=== PATIENT | female | born 1935 | race Caucasian/White ===

== ENCOUNTER 2019-09-11 22:40 | Emergency (ER) | payer MEDICARE ==
[~2019-09-11] VITALS: Ht 162.6 cm; Wt 43.1 kg
[2019-09-12] MEDS ORDERED: Naprosyn500 MG PO (00:13)
[2019-09-12] MEDS ORDERED: Prednisone20 MG PO (00:13)
== END 2019-09-12 00:24 | disposition home or self-care (01) ==
LOC: ER 22:40
DX: M65.4 Radial styloid tenosynovitis [de Quervain] (principal); Z88.0 Allergy status to penicillin; M79.601 Pain in right arm
CPT/HCPCS: 93971; 96372; 99283-25; J1885

== ENCOUNTER 2021-12-10 10:10 | Emergency (ER) | payer MEDICARE ==
[~2021-12-10] VITALS: Ht 162.6 cm; Wt 39.9 kg
[~2021-12-10 10:10] MED LIST: Naprosyn500 MG PO; Prednisone20 MG PO
[2021-12-10] MEDS ORDERED: Norco 5-325 Ta1 EACH PO (11:18)
[2021-12-10] MEDS ORDERED: TOPICAINE 5113 GM TOP (11:18)
== END 2021-12-10 11:35 | disposition home or self-care (01) ==
LOC: ER 10:10
DX: B02.9 Zoster without complications (principal); Z79.52 Long term (current) use of systemic steroids; Z79.899 Other long term (current) drug therapy; Z88.0 Allergy status to penicillin
CPT/HCPCS: 99282

== ENCOUNTER 2024-02-21 14:49 | Inpatient (IN) | payer MEDICARE ==
[~2024-02-21] VITALS: Ht 154.9 cm; Wt 35.8 kg
[~2024-02-21 14:49] MED LIST changes: +Norco 5-325 Ta1 EACH PO; +TOPICAINE 5113 GM TOP
[2024-02-21] MEDS ORDERED: Pantoprazole Sodium 40 MG Injection IV ONE (17:25)
[2024-02-21] MEDS ORDERED: Pantoprazole Sodium 40 MG in NS 50 ML IV SCH (17:25)
[2024-02-21 17:36] LABS: BASOPHILS ABSOLUTE AUTO 0.05 K/mm3 (0.00-0.23); BASOPHILS PERCENT AUTO 0 % (0-2); EOSINOPHILS ABSOLUTE AUTO 0.02 K/mm3 (0.00-0.68); EOSINOPHILS PERCENT AUTO 0 % (0-6); Hematocrit 33.1 % (33.0-51.0); Hemoglobin 11.7 g/dL (11.5-16.0); IMMATURE GRAN ABSOLUTE AUTO 0.22 K/mm3 (0.00-0.10); IMMATURE GRAN PERCENT AUTO 1 % (0-1); LYMPHOCYTES ABSOLUTE AUTO 1.07 K/mm3 (0.84-5.20); LYMPHOCYTES PERCENT AUTO 5 % (21-46); MONOCYTES ABSOLUTE AUTO 0.85 K/mm3 (0.16-1.47); MONOCYTES PERCENT AUTO 4 % (4-13); Mean Corpuscular HGB 30.5 pg (26.0-34.0); Mean Corpuscular HGB Conc 35.3 g/dL (31.5-36.5); Mean Corpuscular Volume 86 fL (80-100); NEUTROPHILS ABSOLUTE AUTO 19.39 K/mm3 (1.96-9.15); NEUTROPHILS PERCENT AUTO 90 % (41-73); RDW Coefficient Variation 14.4 % (11.7-14.2); RDW Standard Deviation 44.2 fL (35.1-46.3); Red Blood Cell Count 3.84 M/mm3 (3.80-5.20)
[2024-02-21 17:47] LABS: International Normalized Ratio 1.12; Prothrombin Time Results 11.9 Sec (9.7-11.5)
[2024-02-21 17:58] LABS: Mean Platelet Volume 11.5 fL (9.1-12.4); Platelet Count 283 K/mm3 (150-400)
[2024-02-21 18:00] LABS: Albumin, Blood 2.9 g/dL (3.4-5.0); Albumin/Globulin Ratio 0.8 (0.8-1.8); Bilirubin, Total 0.5 mg/dL (0.1-1.0); Bun/Creatinine Ratio 82.7 (12.0-20.0); Calcium, Blood 8.9 mg/dL (8.5-10.1); Creatinine, Blood 0.42 mg/dL (0.40-1.00); Globulin, Blood 3.5 g/dL (2.2-4.0); Total Protein, Blood 6.4 g/dL (6.4-8.2)
[2024-02-21] MEDS ORDERED: CefTRIAXone Sodium 1,000 MG in NS 50 ML IV ONE (18:00)
[2024-02-21 18:02] LABS: Potassium, Blood 2.3 mmol/L (3.5-5.5)
[2024-02-21] MEDS ORDERED: Potassium Chl 20MEQ/Water100ML 100 ML IV SCH (18:10)
[2024-02-21] MEDS ORDERED: Potassium Chloride 20 MEQ TabCR PO ONE (18:10)
[2024-02-21] MEDS ORDERED: NS 1,000 ML IV SCH (19:00)
[2024-02-21] MEDS ORDERED: Ondansetron HCl 2 MG / ML 2ML Vial IV PRN (20:10)
[2024-02-21] MEDS ORDERED: FLU VACC TS2024-25(6MOS UP)/PF 45 MCG/0.5 ML SYRINGE IM SCH (20:10)
[2024-02-21] MEDS ORDERED: Lactobacil 2-S.Thermo-Bifido 1 1 Cap PO SCH (21:00)
[2024-02-21 22:48] LABS: Hematocrit 29.4 % (33.0-51.0)
[2024-02-21 23:06] LABS: Bun/Creatinine Ratio 64.2 (12.0-20.0); Calcium, Blood 8.3 mg/dL (8.5-10.1); Creatinine, Blood 0.53 mg/dL (0.40-1.00); Potassium, Blood 3.6 mmol/L (3.5-5.5)
[2024-02-22] VITALS (21 sets, daily range): BP systolic 101–143; BP diastolic 43–78
[2024-02-22 03:17] LABS: BASOPHILS ABSOLUTE AUTO 0.03 K/mm3 (0.00-0.23); BASOPHILS PERCENT AUTO 0 % (0-2); EOSINOPHILS ABSOLUTE AUTO 0.05 K/mm3 (0.00-0.68); EOSINOPHILS PERCENT AUTO 0 % (0-6); Hematocrit 28.8 % (33.0-51.0); Hemoglobin 9.7 g/dL (11.5-16.0); IMMATURE GRAN ABSOLUTE AUTO 0.17 K/mm3 (0.00-0.10); IMMATURE GRAN PERCENT AUTO 1 % (0-1); LYMPHOCYTES ABSOLUTE AUTO 1.19 K/mm3 (0.84-5.20); LYMPHOCYTES PERCENT AUTO 6 % (21-46); MONOCYTES ABSOLUTE AUTO 0.86 K/mm3 (0.16-1.47); MONOCYTES PERCENT AUTO 4 % (4-13); Mean Corpuscular HGB 29.9 pg (26.0-34.0); Mean Corpuscular HGB Conc 33.7 g/dL (31.5-36.5); Mean Corpuscular Volume 89 fL (80-100); Mean Platelet Volume 11.3 fL (9.1-12.4); NEUTROPHILS ABSOLUTE AUTO 19.01 K/mm3 (1.96-9.15); NEUTROPHILS PERCENT AUTO 89 % (41-73); Platelet Count 349 K/mm3 (150-400); RDW Coefficient Variation 14.6 % (11.7-14.2); Red Blood Cell Count 3.24 M/mm3 (3.80-5.20); White Blood Cell Count 21.31 K/mm3 (4.00-11.30)
[2024-02-22 03:37] LABS: Albumin, Blood 2.7 g/dL (3.4-5.0); Albumin/Globulin Ratio 0.9 (0.8-1.8); Bilirubin, Total 0.5 mg/dL (0.1-1.0); Bun/Creatinine Ratio 64.9 (12.0-20.0); Calcium, Blood 8.4 mg/dL (8.5-10.1); Creatinine, Blood 0.48 mg/dL (0.40-1.00); Magnesium, Blood 2.1 mg/dL (1.6-2.4); Total Protein, Blood 5.7 g/dL (6.4-8.2)
[2024-02-22] MEDS ORDERED: DiphenhydrAMINE HCl 50 MG/ML 1ML Vial IV PRN (07:05)
[2024-02-22] MEDS ORDERED: Potassium Chloride 20 MEQ TabCR PO ONE (08:00)
[2024-02-22] MEDS ORDERED: NS 1,000 ML IV SCH (08:00)
[2024-02-22] MEDS ORDERED: CefTRIAXone Sodium 2,000 MG in NS 100 ML IV SCH (09:00)
[2024-02-22 10:01] LABS: Source, Urine Clean Catch
[2024-02-22 10:09] LABS: Bilirubin, Urine Neg (Neg); Blood, Urine 1+ (Neg); Glucose Qualitative, Urine Neg (Neg); Ketones, Urine 2+ (Neg); Leukocyte Esterase, Urine Neg (Neg); Nitrite, Urine Neg (Neg); Protein, Urine 2+ (Neg); Specific Gravity, Urine 1.015 (1.003-1.022); Urobilinogen, Urine NORM (Normal)
[2024-02-22 10:19] LABS: Appearance, Urine Hazy (Clear); Color, Urine Yellow (P-Yellow)
[2024-02-22 10:20] LABS: Bacteria Rare /hpf; Red Blood Cells, Urine 0-2 /hpf (0-2); Squamous Epithelial Cells Few /hpf (Few); White Blood Cells, Urine 0-2 /hpf (0-5)
[2024-02-22] MEDS ORDERED: HYDROcodone 5-APAP 325 TAB PO PRN (12:00)
[2024-02-22] MEDS ORDERED: Lactated Ringer's 1,000 ML IV SCH (15:15)
--- NOTE | 2024-02-22 15:28 | NUR ---
History, Chart, Medications and Allergies reviewed before start of procedure. Lungs DIMINISHED IN THE BASES, COURSE COUGH, UPPER AIRWAY CLEARS WITH COUGH. Pre-Op teaching done. Pt verbalizes understanding. Patient confirms NPO status and agrees with scheduled surgery.
--- NOTE | 2024-02-22 15:44 | NUR ---
02/22/24 1544 Dulce Oneill CONFIRMED AND REVIEWED H&P, MEDCICATIONS, ALLERGIES, MEDICAL HISTORY, RESPIRATORY HISTORY, VITAL SIGNS, 3-LEAD EKG, CONSENTS, AND PHYSICIAN ORDERS. PATIENT CONFIRMS NPO STATUS AND AGREES WITH SCHEDULED PROCEDURE. MONITOR INTACT WITH CONTINUOUS PULSE OXIMETRY, CAPNOGRAPHY, 3-LEAD EKG, INTERMITTENT BP. SUPPLEMENTAL O2 TO BE TITRATED THROUGHOUT PROCEDURE TO MAINTAIN O2 SATURATION ABOVE 90%. PATIENT DETERMINED TO BE ASA APPROPRIATE FOR PROPOFOL SEDATION PRIOR TO START OF PROCEDURE BY DR. SLADE.
[2024-02-22] MEDS ORDERED: propofoL 20 ML IV ONE (16:27)
[2024-02-22] MEDS ORDERED: Benzocaine Oral Spray 0.5ML UD ONE (16:27)
[2024-02-22] MEDS ORDERED: Midazolam HCl 1MG / ML 2ML Vial ONE (16:28)
--- NOTE | 2024-02-22 18:25 | NUR ---
call placed to md regarding code status as patient and family adamant about changing code status. awaiting orders.
--- NOTE | 2024-02-22 18:43 | NUR ---
PATIENT ARRIVED ON UNIT, SETTTLED IN AND VITALS TAKEN. VITAL SIGNS STABLE, MD WAS CALLED REGARING CODE STATUS. PATIENT REQUESTED PAIN MEDICATIONS PER EMAR AND WAS MEDICATED.
[2024-02-23] VITALS: BP 141/63
[2024-02-23 04:00] VITALS: BP 131/56
[2024-02-23] MEDS ORDERED: Omeprazole 20 MG CapCR PO SCH (06:00)
[2024-02-23 06:47] LABS: BASOPHILS ABSOLUTE AUTO 0.02 K/mm3 (0.00-0.23); BASOPHILS PERCENT AUTO 0 % (0-2); EOSINOPHILS ABSOLUTE AUTO 0.13 K/mm3 (0.00-0.68); EOSINOPHILS PERCENT AUTO 1 % (0-6); Hematocrit 27.4 % (33.0-51.0); Hemoglobin 9.1 g/dL (11.5-16.0); IMMATURE GRAN ABSOLUTE AUTO 0.15 K/mm3 (0.00-0.10); IMMATURE GRAN PERCENT AUTO 1 % (0-1); LYMPHOCYTES ABSOLUTE AUTO 1.14 K/mm3 (0.84-5.20); LYMPHOCYTES PERCENT AUTO 6 % (21-46); MONOCYTES ABSOLUTE AUTO 0.64 K/mm3 (0.16-1.47); MONOCYTES PERCENT AUTO 3 % (4-13); Mean Corpuscular HGB 30.2 pg (26.0-34.0); Mean Corpuscular HGB Conc 33.2 g/dL (31.5-36.5); Mean Corpuscular Volume 91 fL (80-100); Mean Platelet Volume 11.2 fL (9.1-12.4); NEUTROPHILS ABSOLUTE AUTO 17.16 K/mm3 (1.96-9.15); NEUTROPHILS PERCENT AUTO 89 % (41-73); Platelet Count 311 K/mm3 (150-400); RDW Coefficient Variation 14.7 % (11.7-14.2); RDW Standard Deviation 47.7 fL (35.1-46.3); Red Blood Cell Count 3.01 M/mm3 (3.80-5.20); White Blood Cell Count 19.24 K/mm3 (4.00-11.30)
[2024-02-23 07:10] LABS: Bun/Creatinine Ratio 31.1 (12.0-20.0); Calcium, Blood 8.1 mg/dL (8.5-10.1); Creatinine, Blood 0.45 mg/dL (0.40-1.00); Magnesium, Blood 1.8 mg/dL (1.6-2.4); Potassium, Blood 2.8 mmol/L (3.5-5.5)
--- NOTE | 2024-02-23 07:27 | NUR ---
PT STABLE THROUGHOUT THE SHIFT. PT DID HAVE A INCONTINENT, BLACK, LOOSE STOOL X1. PT TOLERATING IV FLUIDS WELL. PT DOES C/O RT SHOULDER PAIN AND WAS MEDICATED WITH 2 NORCO X1 WITH GOOD EFFECT. PT REMAINS ON ROOM AIR, AOX4. PT IS VERY CACHETIC WITH POOR APPETITE. BONY COCCYX AND T-SPINE HAVE FOAM PADDING APPLIED TO BLANCHABLE RED AREAS FOR BREAKDOWN PREVENTION. VITAL SIGNS REMAIN WNL. PURE WICK IN PLACE D/T PAINFUL TURNING, POOR URINE OUTPUT TO PUREWICK NOTED, UNKNOWN HOW MUCH URINE IN INCONTINENT BM AT BEGINNING OF SHIFT.
--- NOTE | 2024-02-23 08:00 | NUR ---
INITIAL ASSESSMENT: Patient is alert and oriented x4. She is sitting up in the bed watching TV and eating her breakfast. She reports 8/10 pain in her right shoulder, she states she tripped and fell over a box at home, since then she has been having severe pain in that shoulder. HRR, she is SR in the 70s. LS DIM in the bases, biox is WNL on RA. BT+, pt is chaectic. Purewick in place with attends on. PPP. VSS. AM meds given at this time. Patients potassium is 2.8 this AM, Dr. Valiente has been notified, 40 meq given this am. She denies other needs at this time. Call light in reach.
[2024-02-23 08:14] VITALS: BP 107/51
[2024-02-23] MEDS ORDERED: Potassium Chloride 20 MEQ TabCR PO SCH (08:30)
[2024-02-23 13:21] VITALS: BP 109/47
[2024-02-23 15:42] VITALS: BP 153/60
[2024-02-23] MEDS ORDERED: Multivitamins 1 Tab PO SCH (15:45)
[2024-02-23] MEDS ORDERED: Thiamine HCl 100 MG Tab PO SCH (15:57)
--- NOTE | 2024-02-23 16:00 | NUR ---
Update: Patient is OOB to the chair and was able to work with therapy earlier. OT discussed concerns with MD regarding the patient having a rotator cuff tear. MD has already discussed with ortho, patient will have to follow up as an outpatient. MD has ordered a chest CT for a mass on the chest X-Ray. Patient is resting in the chair at this time. Pain well controlled with [place]. Call light in reach.
[2024-02-23] MEDS ORDERED: Pantoprazole Sodium 40 MG Tab PO SCH (16:30)
[2024-02-23] MEDS ORDERED: HYDROmorphone HCl/Pf 1MG SYR IV ONE (18:30)
[2024-02-23 20:00] VITALS: BP 119/76
--- NOTE | 2024-02-23 22:03 | NUR ---
PT IS ALERT AND ORIENTED X4, VERY SWEET PT, FOLLOWS COMMANDS, CURRENTLY SITTING IN CHAIR. PT HEART RATE IS IN THE 60s, PT DENIES CHEST PAIN, BLOOD PRESSURE STABLE AT 119/76. PT IS ON ROOM AIR SATTING >95%, PT DENIES SHORTNESS OF BREATH. PT DOES HAVE A POSSIBLE ROTATOR CUFF INJURY WHICH IS TO BE FIXED OUTPATIENT PER PROVIDER. PAIN HAS BEEN UNDER CONTROL, RATING IT A 3 OUT OF 10 THIS RN GOT ONTO SHIFT. PT HAS MINOR REDNESS ON BONY PROVIDENCES, PT WILL BE TURNED Q2HRS. NO OTHER INTERVENTIONS AT THIS TIME. PLAN OF CARE CONTINUED.
[2024-02-24 04:00] VITALS: BP 131/58
[2024-02-24 04:26] LABS: BASOPHILS ABSOLUTE AUTO 0.02 K/mm3 (0.00-0.23); BASOPHILS PERCENT AUTO 0 % (0-2); EOSINOPHILS ABSOLUTE AUTO 0.11 K/mm3 (0.00-0.68); EOSINOPHILS PERCENT AUTO 1 % (0-6); Hematocrit 28.1 % (33.0-51.0); Hemoglobin 9.2 g/dL (11.5-16.0); IMMATURE GRAN ABSOLUTE AUTO 0.17 K/mm3 (0.00-0.10); IMMATURE GRAN PERCENT AUTO 1 % (0-1); LYMPHOCYTES ABSOLUTE AUTO 1.29 K/mm3 (0.84-5.20); LYMPHOCYTES PERCENT AUTO 7 % (21-46); MONOCYTES ABSOLUTE AUTO 0.61 K/mm3 (0.16-1.47); MONOCYTES PERCENT AUTO 3 % (4-13); Mean Corpuscular HGB 30.4 pg (26.0-34.0); Mean Corpuscular HGB Conc 32.7 g/dL (31.5-36.5); Mean Corpuscular Volume 93 fL (80-100); Mean Platelet Volume 11.3 fL (9.1-12.4); NEUTROPHILS ABSOLUTE AUTO 16.63 K/mm3 (1.96-9.15); NEUTROPHILS PERCENT AUTO 88 % (41-73); Platelet Count 316 K/mm3 (150-400); RDW Coefficient Variation 15.2 % (11.7-14.2); RDW Standard Deviation 50.4 fL (35.1-46.3); Red Blood Cell Count 3.03 M/mm3 (3.80-5.20); White Blood Cell Count 18.83 K/mm3 (4.00-11.30)
[2024-02-24 05:29] LABS: Bun/Creatinine Ratio 26.8 (12.0-20.0); Calcium, Blood 8.7 mg/dL (8.5-10.1); Creatinine, Blood 0.41 mg/dL (0.40-1.00); Magnesium, Blood 1.6 mg/dL (1.6-2.4); Phosphorus, Blood 2.1 mg/dL (2.5-4.9); Potassium, Blood 4.5 mmol/L (3.5-5.5)
--- NOTE | 2024-02-24 05:36 | NUR ---
PT SUMMARY PT IS SITTING IN CHAIR, PT STATED THEY DID NOT WANT TO GET BACK INTO BED. PT IS FOLLOWING COMMANDS. PT HAD SHEETS CHANGED AND NEW PAD PLACED UNDER. NO NEW EVENTS TO REPORT OVERNIGHT. PLAN OF CARE CONTINUED.
[2024-02-24] MEDS ORDERED: Omeprazole 20 MG CapCR PO SCH (06:00)
[2024-02-24 08:23] VITALS: BP 120/60
[2024-02-24] MEDS ORDERED: Mag Sulfate 1 GM/D5% 100ML 100 ML IV STA (08:23)
[2024-02-24] MEDS ORDERED: HYDROmorphone HCl/Pf 1MG SYR IV ONE ×2 (09:40→13:55)
[2024-02-24] MEDS ORDERED: HYDROmorphone HCl 2 MG Tab PO PRN (13:55)
[2024-02-24] MEDS ORDERED: HYDROcodone 10-APAP 325 TAB PO SCH ×2 (13:55→18:00)
[2024-02-24 15:03] VITALS: BP 136/61
--- NOTE | 2024-02-24 17:40 | NUR ---
SHIFT SUMMARY PT A&O X4, CALM, COOPERATIVE TO CARE. PT MEDICAL NO TELE, HR IN THE 80'S, SBP STABLE, DENIES CP/PRESSURE, NUMB/TINGLING. O2 >92% ON RA, DENIES SOB. PT WITH PAIN IN THE RIGHT SHOULDER, AND BACK, MEDICATING PER EMAR. PROVIDER TO BEDSIDE TO DISCUSS PLAN OF CARE. CONSULT WITH PULMONOLGY PLACED. PAIN MEDICATION ADJUSTED, PTS PAIN SEEMS MANAGED AT THIS TIME. PULOMONOLOGY TO BEDSIDE. PT AGREE TO DO BROCHOSCOPY TOMORROW. PT WILL NOT EAT AFTER DINNER AND NO CLEAR LIQUIDS AFTER 0600 AM. PT DENIES ANY QUESTIONS AT THIS TIME. WILL MONITOR AND REPORT TO [employer] CONSULTANT RN.
[2024-02-24 19:49] VITALS: BP 139/65
--- NOTE | 2024-02-24 22:02 | NUR ---
ASSUMPTION OF CARE THIS RN ASSUMED CARE OF PT AT 1900. UPON INITIAL ASSESSMENT, PT A&O X4. C/O PAIN. PAIN MEDS ADMINISTERED, SEE MAR FOR DETAILS. SPO2 > 93% ON RA. NO S/S ACUTE DISTRESS.
[2024-02-25] VITALS (14 sets, daily range): BP systolic 109–164; BP diastolic 44–78
[2024-02-25 04:28] LABS: Hematocrit 28.9 % (33.0-51.0); Hemoglobin 9.3 g/dL (11.5-16.0)
[2024-02-25 05:02] LABS: Bun/Creatinine Ratio 23.2 (12.0-20.0); Calcium, Blood 8.6 mg/dL (8.5-10.1); Creatinine, Blood 0.47 mg/dL (0.40-1.00); Magnesium, Blood 1.8 mg/dL (1.6-2.4); Phosphorus, Blood 2.4 mg/dL (2.5-4.9); Potassium, Blood 4.2 mmol/L (3.5-5.5)
--- NOTE | 2024-02-25 05:47 | NUR ---
SHIFT SUMMARY PT REQUIRED FREQUENT PAIN MANAGEMENT OVERNIGHT. SEE MAR FOR DETAILS. NO S/S ACUTE DISTRESS AT THIS TIME. APPEARED TO REST WELL OVERNIGHT. AWAITING BRONCH TODAY. NPO THIS AM.
[2024-02-25] MEDS ORDERED: Lactated Ringer's 1,000 ML IV SCH (12:15)
[2024-02-25] MEDS ORDERED: Lidocaine HCl/Pf 1% 5 ML VIAL ONE (12:26)
[2024-02-25] MEDS ORDERED: Lidocaine 2% Jelly Uro-Jet ONE (12:26)
[2024-02-25] MEDS ORDERED: EpiNEPhrine 1 MG/1 ML 1ML Vial ONE (12:27)
[2024-02-25] MEDS ORDERED: Lidocaine HCl 4% 5 ML SDA ONE (12:40)
[2024-02-25] MEDS ORDERED: Lidocaine HCl 4% 5 ML SDA INH ONE (12:45)
[2024-02-25] MEDS ORDERED: Midazolam HCL 1 MG/ML 5MLVIAL ONE (13:07)
[2024-02-25] MEDS ORDERED: FentaNYL Citrate 50 MCG/ML 2 ML Injection ONE (13:07)
[2024-02-25] MEDS ORDERED: propofoL 20 ML IV ONE (13:07)
--- NOTE | 2024-02-25 13:36 | NUR ---
02/25/24 1336 [place] 4% LIDOCAINE NEB DONE PRIOR TO PT TAKEN TO PROCEDURE ROOM. PT STATES SHE FEELS NUMB, LUMP FEELING IN BACK OF THROAT. 2% LIDOCAINE SOLUTION SPRAYED TO OROPHARYNX USING ATOMIZATION DEVICE UNTIL GAG REFLEX GONE. BITE BLOCK IN BEFORE START OF PROCEDURE, SCOPE PASSED THRU MOUTH. 1310- DR BLACKWELL ARRIVED 1314- SEDATION STARTED PER DR BLACKWELL. AT 1317 PT APNEA, NO CHEST RISE, AMBU BAG USED APPROX 1 MINUTE AND PT RETURNED TO SPONANEOUS BREATHING, RESP RATE 8. SCOPE PASSED THROUGH MOUTH AT 1321. PT ON 10L VIA POM MASK T/O PROCEDURE. PROCEDED WITH PROPOFOL DOSES PER DR BLACKWELL TO MAINTAIN SEDATION.
--- NOTE | 2024-02-25 14:31 | NUR ---
PT RETURNED FROM PROCEDURE AROUND 1420. PT SLID FROM [facility] TO PCU BED. HR IN THE 90'S, SINUS RHYTHM, SBP STABLE. O2 >92% ON RA, RR 18, BREATHING EVEN AND UNLABORED. WARM BLANKETS GIVEN TO PT. PT RESTING IN BED.
--- NOTE | 2024-02-25 17:33 | NUR ---
SHIFT SUMMARY PT A&O X4, CALM, COOPERATIVE TO CARE. HR IN THE 80'S-90'S. SINUS RHYTHM. DENIES CP/PRESSURE, NUMB/TINGLING. SBP STABLE. SHE DENIES SOB, O2 >92% ON RA. PT HAS A WET COUGH, SHE HAS SOME BLOOD IN HER SPIT, PROVIDER DISCUSSES WITH PT THAT THIS IS A NORMAL FINDING FOLLOWING HER PROCEDURE. SHE IS STILL HAVING PAIN IN THE RIGHT SHOULDER AND BACK, MEDICATING PER EMAR. DENIES ANY N/V/D, +BS, NO PAIN IN ABD. PT COMPLETED BRONCHOSCOPY TODAY. PROVIDER TO BEDSIDE TO DISCUSS. PT ADVISED RESULTS WILL TAKE A FEW DAYS BUT SHE WILL BE NOTIFIED WITH RESULTS. PT AGREEABLE. PT DENIES ANY QUESTIONS OR CONCERNS AT THIS TIME. WILL MONITOR PT AND REPORT TO MEDICAL DERMATOLOGIST RN.
--- NOTE | 2024-02-26 02:43 | NUR ---
SHIFT SUMMARY PT RESTED WELL THIS SHIFT. C/O PAIN, TREATED PER ORDERS. SEE MAR FOR DETAILS. Q2 TURNS PT TOLERATES. VITALLY STABLE AT THIS TIME.
[2024-02-26 04:24] VITALS: BP 148/75
[2024-02-26 06:16] LABS: Hematocrit 30.2 % (33.0-51.0); Hemoglobin 9.6 g/dL (11.5-16.0); Mean Corpuscular HGB 29.4 pg (26.0-34.0); Mean Corpuscular HGB Conc 31.8 g/dL (31.5-36.5); Mean Corpuscular Volume 92 fL (80-100); Mean Platelet Volume 12.1 fL (9.1-12.4); Platelet Count 275 K/mm3 (150-400); RDW Standard Deviation 49.7 fL (35.1-46.3); Red Blood Cell Count 3.27 M/mm3 (3.80-5.20); White Blood Cell Count 17.89 K/mm3 (4.00-11.30)
[2024-02-26 06:43] LABS: Bun/Creatinine Ratio 25.8 (12.0-20.0); Calcium, Blood 8.6 mg/dL (8.5-10.1); Creatinine, Blood 0.54 mg/dL (0.40-1.00); Magnesium, Blood 1.7 mg/dL (1.6-2.4); Phosphorus, Blood 3.2 mg/dL (2.5-4.9); Potassium, Blood 3.5 mmol/L (3.5-5.5)
[2024-02-26 08:12] VITALS: BP 117/75
[2024-02-26] MEDS ORDERED: Mag Sulfate 1 GM/D5% 100ML 100 ML IV STA (08:38)
[2024-02-26] MEDS ORDERED: Potassium Chloride 20 MEQ TabCR PO ONE (09:00)
--- NOTE | 2024-02-26 14:34 | NUR ---
TRANSFER NOTE PATIENT TRANSFERRED FROM [facility] TO ROOM 324 THIS AFTERNOON. A/OX4, ABLE TO MAKE NEEDS KNOWN. PATIENT ORIENTED TO ROOM, CALL LIGHT WITHIN REACH. ADMINISTERED DILAUDUD PER MAY FOR R SHOULDER PAIN 10/22. SKIN ASSESSMENT COMPLETED, NO OTHER CONCERNS AT THIS TIME.
--- NOTE | 2024-02-26 15:21 | NUR ---
TRANSFER SUMMARY PT A&O X4, CALM, COPERATIVE TO CARE. SINUS RHYTHM, 70'S, SBP STABLE, DENIED CP/PRESSURE. L/S DIM T/O, PT DENIED SOB, O2 >92% ON RA. PUREWICK IN PLACE. PT WITH CONSTANT PAIN OF THE RIGHT SHOULDER, MEDICATED PER EMAR. PT DENIED ANY QUESTIONS OR CONCERNS. ROOM AVAILABLE FOR PT ON MEDICAL FLOOR. CALLED AND GAVE REPORT TO MEDICAL FLOOR NURSE. PT LEFT VIA PCU BED WITH PCT.
[2024-02-26 15:42] VITALS: BP 126/58
--- NOTE | 2024-02-26 18:36 | NUR ---
SHIFT [employer] PATIENT A/OX4, ABLE TO MAKE NEEDS KNOWN. CONTINUES WITH RIGHT SHOULDER PAIN WITH SMALL RELIEF WITH SCHEDULED NORCO AND PRN DILAUDID. NO NEW CONCERNS SINCE TRANSFER THIS AFTERNOON. TELEMETRY IN PLACE, NO EVENTS NOTED.
[2024-02-26 19:36] VITALS: BP 135/62
[2024-02-27] MEDS ORDERED: ZANAFLEX413 PO (01:10)
[2024-02-27] MEDS ORDERED: HYDMOR4 PO (01:10)
[2024-02-27 02:55] VITALS: BP 133/58
--- NOTE | 2024-02-27 03:48 | NUR ---
SHIFT SUMMARY 88 YR F ADMITTED ON 02/21/24. FULL CODE. NO ACUTE CHANGES THIS SHIFT. PT FREQUENTLY ASKS FOR PAIN MEDICATION STATING THAT SHE HURTS ALL OVER. SHE IS FRAIL AND YOEL AND IS TUCKED INTO BED WITH LOTS OF PILLOWS FOR CUSHIONING. SHE WILL ASK TO BE REPOSITIONED WHEN SHE IS UNCOMFORTABLE. SHE IS PLEASANT AND COOPERATIVE WITH CARE. NO ADVERSE EVENTS REPORTED FROM [employer]. NO NEW CHANGES TO REPORT. BED IN LOW POSITION AND CALL LIGHT IN REACH.
[2024-02-27 06:38] LABS: Bun/Creatinine Ratio 34.5 (12.0-20.0); Calcium, Blood 8.4 mg/dL (8.5-10.1); Creatinine, Blood 0.55 mg/dL (0.40-1.00); Magnesium, Blood 1.9 mg/dL (1.6-2.4); Potassium, Blood 3.9 mmol/L (3.5-5.5)
[2024-02-27 07:47] VITALS: BP 128/52
[2024-02-27] MEDS ORDERED: Norco 10-325 T1 EACH PO (12:43)
[2024-02-27] MEDS ORDERED: MEGE40T PO (12:44)
[2024-02-27] MEDS ORDERED: OMEP20ER PO (12:44)
--- NOTE | 2024-02-27 17:45 | NUR ---
PT IS A&OX4, VSS AND ON RA. PATIENT HAD PLANS TO DISCHARGE HOME W/HOME HEALTH. HER SON WAS THE RIDE AND WAS UNABLE TO BE REACHED AND NO OTHER FAMILY MEMBER OR LOVED ONE COULD COME PICK HER UP. PT WILL REMAIN TILL WE CAN ALLOCATE A RIDE
[2024-02-27 19:23] VITALS: BP 131/66
--- NOTE | 2024-02-28 03:33 | NUR ---
SHIFT SUMMARY 88 YR F ADMITTED ON 02/21/24. FULL CODE. NO ACUTE CHANGES THIS SHIFT. PLAN IS FOR PT TO DISCHARGE. PAPERWORK IS COMPLETED AND READY TO GO. PT CONTINUES TO BE MEDICATED FOR PAIN. NO NEW CHANGES TO REPORT. BED IN LOW POSITION AND CALL LIGHT IN REACH.
[2024-02-28 04:00] VITALS: BP 141/73
[2024-02-28 05:23] LABS: Hematocrit 31.5 % (33.0-51.0); Hemoglobin 10.1 g/dL (11.5-16.0)
[2024-02-28 06:03] LABS: Creatinine, Blood 0.42 mg/dL (0.40-1.00); Magnesium, Blood 1.7 mg/dL (1.6-2.4); Potassium, Blood 3.4 mmol/L (3.5-5.5)
[2024-02-28] MEDS ORDERED: Potassium Chloride 20 MEQ TabCR PO ONE (07:45)
[2024-02-28 08:15] VITALS: BP 121/62
--- NOTE | 2024-02-28 09:46 | NUR ---
CONTACTED DR TOURE REGARDING NO ADMINSTRATION OF ROCEPHINE, PATIENT IV WAS TAKEN OUT LAST NIGHT PER DR. TOURE HE WILL COME SEE PATIENT
--- NOTE | 2024-02-28 11:41 | NUR ---
DISHCARGE INSTRUCTION REDONE WITH PATIENT WHO VERBALIZED UNDERSTANDING WITH ALL ABOVE. PATIENT TAKEN VIA WHEELCHAIR TO [facility] TO TAKE PATIENT HOME
== END 2024-02-28 11:36 | disposition home health service (06) | DRG 853 ==
LOC: ER 14:49 → ERHOLD 20:08 → PCU 20:08 → MEDS 20:08 → PCU 02-22 14:53 → MEDS 02-26 13:44 → ENPENDDIS 02-27 12:56 → MEDS 02-28 11:36
PROVIDERS: Emergency Medicine; Hospitalist; Internal Medicine Critical Care Medicine; Student in an Organized Health Care Education/Training Program; ADMIT Student in an Organized Health Care Education/Training Program
PROC: 3E03329 Introduction of Other Anti-infective into Peripheral Vein, Percutaneous Approach (ICD-10-PCS; 2024-02-21)
PROC: 0DB98ZX Excision of Duodenum, Via Natural or Artificial Opening Endoscopic, Diagnostic (ICD-10-PCS; 2024-02-22)
PROC: 0DB68ZX Excision of Stomach, Via Natural or Artificial Opening Endoscopic, Diagnostic (ICD-10-PCS; 2024-02-22)
PROC: 0BBC8ZX Excision of Right Upper Lung Lobe, Via Natural or Artificial Opening Endoscopic, Diagnostic (ICD-10-PCS; principal; 2024-02-25 13:00)
DX: A41.9 Sepsis, unspecified organism (principal); E43 Unspecified severe protein-calorie malnutrition; K26.4 Chronic or unspecified duodenal ulcer with hemorrhage; K29.51 Unspecified chronic gastritis with bleeding; Z68.1 Body mass index [BMI] 19.9 or less, adult; N39.0 Urinary tract infection, site not specified; C34.11 Malignant neoplasm of upper lobe, right bronchus or lung; Z66 Do not resuscitate; E87.6 Hypokalemia; G89.29 Other chronic pain; T39.395A Adverse effect of other nonsteroidal anti-inflammatory drugs [NSAID], initial encounter; K31.89 Other diseases of stomach and duodenum; S46.011A Strain of muscle(s) and tendon(s) of the rotator cuff of right shoulder, initial encounter; W18.30XA Fall on same level, unspecified, initial encounter; Z88.0 Allergy status to penicillin
CPT/HCPCS: 36415; 71045; 71260; 73030; 80048; 80053; 81001; 82272; 82947; 83605; 83690; 83735; 84100; 84484; 85014; 85018; 85025; 85027; 85610; 86850; 86900; 86901; 87040; 87070; 87086; 87205; 88305; 88341; 88342; 93005; 93010; 94760; 94762; 96365; 96366; 96368; 97110; 97162; 97165; 97530; 99285-25; A9270; J0171; J0696; J1171; J2003; J2250; J2470; J2704; J3010; J3475; J3480; J7030; J7120; Q9967